=== PATIENT | male | born 1950 | race Two or more races ===

== ENCOUNTER 2021-12-20 12:17 | Outpatient (CLI) | payer OTHER | END 2021-12-20 12:18 | disposition home or self-care (01) | LOC: SONOGRAMA 12:17 | PROVIDERS: ATTEND Pathology Anatomic Pathology & Clinical Pathology | DX: D34 Benign neoplasm of thyroid gland (principal); E04.9 Nontoxic goiter, unspecified; E04.2 Nontoxic multinodular goiter ==

== ENCOUNTER 2022-12-13 05:30 | Day surgery (SDC) | payer OTHER ==
[~2022-12-13] VITALS: Ht 175.3 cm; Wt 106.1 kg
[~2022-12-13 05:30] MED LIST: ENALAPRIL MALEAT5 MG PO; PEPCID20 MG PO; SIMVAST PO; TAMS0.4C PO
[2022-12-13] MEDS ORDERED: CILOXAN5 ML OTIC (09:33)
[2022-12-13] MEDS ORDERED: CEPHALEXIN500 MG PO (09:33)
== END 2022-12-13 12:00 | disposition home or self-care (01) ==
LOC: CIR.AMB 05:30
PROVIDERS: ATTEND Otolaryngology Otology & Neurotology
DX: H72.02 Central perforation of tympanic membrane, left ear (principal); H90.A12 Conductive hearing loss, unilateral, left ear with restricted hearing on the contralateral side; Z20.822 Contact with and (suspected) exposure to COVID-19; I10 Essential (primary) hypertension; E78.5 Hyperlipidemia, unspecified